=== PATIENT | female | born 1950 | race Caucasian/White ===

== ENCOUNTER 2025-01-26 13:47 | Outpatient (CLI) | payer MEDICARE | END 2025-01-26 13:48 | disposition home or self-care (01) | LOC: CSHMAMMO 13:47 | PROVIDERS: ATTEND Obstetrics & Gynecology | DX: R92.1 Mammographic calcification found on diagnostic imaging of breast (principal) | CPT/HCPCS: 77065; G0279 ==

== ENCOUNTER → 2025-01-30 | Day surgery (SDC) | payer MEDICARE | LOC: CSHMAMMO 07:36 | PROVIDERS: ATTEND Obstetrics & Gynecology | PROC: 0HBT3ZX Excision of Right Breast, Percutaneous Approach, Diagnostic (ICD-10-PCS; principal; 2025-01-30) | DX: D05.11 Intraductal carcinoma in situ of right breast (principal); N64.1 Fat necrosis of breast | CPT/HCPCS: 19081; 76098; 77065; A4648; 88305 ==

== ENCOUNTER 2025-04-07 10:08 | Emergency (ER) | payer MEDICARE ==
[2025-04-07] MEDS ORDERED: Iopamidol 300 61% 100 ML VIAL FS ONE (10:12)
[2025-04-07 11:53] LABS: #Basophils 0.03 10x3/uL (0.0-0.2); #Eosinophils Less than 0.03 10x3/uL (0.0-0.5); #Monocytes 0.56 10x3/uL (0.0-1.1); #Neutrophils 4.52 10x3/uL (1.5-8.4); %Basophils 0.5 % (0.0-2.0); %Eosinophils 0.2 % (0.0-6.0); %Lymphocytes 19.2 % (18.0-47.0); %Monocytes 8.8 % (0.0-10.0); %Neutrophils 71.0 % (40.0-75.0); Hematocrit 45.4 % (34.9-44.5); Hemoglobin 15.0 g/dL (12.0-15.5); Mean Corpuscular Hemoglobin 28.7 pg (27.0-33.0); Mean Corpuscular Volume 87.0 fL (81.6-98.3); Platelet Count 188 10x3/uL (150-450); Red Blood Cell (RBC) Count 5.22 10x6/uL (3.90-5.03); White Blood Cell (WBC) Count 6.36 10x3/uL (3.5-10.5)
[2025-04-07 11:57] LABS: Glucose, Urine (Dipstick) Normal (Negative); Leukocyte Negative (Negative); Protein, Urine (Dipstick) Negative (Neg-Trace); Specific Gravity, Urine 1.005 (1.005-1.030)
[2025-04-07 12:05] LABS: CAUTI Indications for Culture Dysuria,urgency,freq; WBC/HPF 0-3 HPF (0-3)
[2025-04-07 12:06] LABS: Bacteria/HPF Rare-Few HPF (None Seen)
[2025-04-07 12:07] LABS: ALT (SGPT) 13 U/L (Less than 34); AST (SGOT) 16 U/L (11-34); Albumin 4.5 g/dL (3.1-4.5); Alkaline Phosphatase 88 U/L (40-110); Anion Gap 14 mmol/L (10-20); BUN (Urea Nitrogen) 8 mg/dL (9.8-20.1); Bilirubin, Total 0.6 mg/dL (0.3-1.2); Calc. Creatinine Clearance 0 mL/min (70-130); Calcium 10.1 mg/dL (7.8-10.44); Carbon Dioxide 29 mmol/L (23-31); Chloride 104 mmol/L (98-107); Globulin 3.1 g/dL (2.4-3.5); Glucose 125 mg/dL (83-110); Lipase 42 U/L (8-78); Potassium 4.1 mmol/L (3.5-5.1); Sodium 143 mmol/L (136-145); Urine Culture Reflex No No
[2025-04-07] MEDS ORDERED: Famotidine/PF 20 mg/2ml Vial ONE (12:54)
[2025-04-07] MEDS ORDERED: diphenhydrAMINE 50 MG/ML VIAL ONE (12:54)
== END 2025-04-07 15:43 | disposition home or self-care (01) ==
LOC: CSHERS 10:08
DX: M54.50 Low back pain, unspecified (principal); I10 Essential (primary) hypertension
CPT/HCPCS: 74177; 80053; 81001; 83690; 85025; 96374; 96375; 99284; J1200; Q9967; J1308